=== PATIENT | female | born 1975 | race Two or more races ===

== ENCOUNTER 2024-02-16 17:23 | Emergency (ER) | payer SELFPAY ==
[~2024-02-16] VITALS: Ht 154.9 cm; Wt 73.1 kg
[2024-02-16 17:41] VITALS: TEMP 98.2
[2024-02-16 17:42] VITALS: BP 153/90; PULSE 114; RESP 18; O2SAT 95
[2024-02-16] MEDS ORDERED: HYDR-4902 PO (19:55)
[2024-02-16] MEDS: HYDROcodone-ACET 5/325MG TAB PO ONE (20:00)
== END 2024-02-16 20:36 | disposition home or self-care (01) ==
LOC: ER 17:23
DX: S63.91XA Sprain of unspecified part of right wrist and hand, initial encounter (principal); V89.2XXA Person injured in unspecified motor-vehicle accident, traffic, initial encounter; Y93.89 Activity, other specified; Y92.89 Other specified places as the place of occurrence of the external cause; Y99.8 Other external cause status
CPT/HCPCS: 29125; 73130